=== PATIENT | male | born 1955 | race Caucasian/White ===

== ENCOUNTER 2018-03-13 09:36 | Inpatient (IN) | payer OTHER ==
[2018-03-13] MEDS ORDERED: ONDANSETRON 4 MG/2 ML VIAL IVP PRN (15:04)
[2018-03-13] MEDS ORDERED: ONDANSETRON DISINTEGRATING 4 MG TAB PO PRN (15:04)
[2018-03-13] MEDS ORDERED: ALBUTEROL 60 PUFFS/8 GM MDI IH PRN (15:06)
[2018-03-13] MEDS ORDERED: D50W 25 GM/50 ML SYR IVP PRN (15:13)
[2018-03-13] MEDS ORDERED: NON-FORMULARY NEW DRUG (Insulin Pump, Patient Own 1 EA) MISC SCH (15:15)
[2018-03-13] MEDS ORDERED: INSULIN PUMP, PATIENT OWN 1 EA MISC SCH (15:15)
--- NOTE | 2018-03-13 15:40 | GHP ---
[f rep st] HISTORY AND PHYSICAL DATE OF ADMISSION: 03/13/2018 CHIEF COMPLAINT: Right foot infection. HISTORY OF PRESENT ILLNESS: This is a 62-year-old man who was sent in by Dr. Tran. He had a plantar plate repair last week by Dr. Tran. There was an external pin left in place. He saw Dr. Tran last who removed the pin. On Saturday, he began to have fevers to 102, noticed increased pain, swelling, and redness in his right foot. He saw Dr. Tran on Saturday who started him on Bactrim at that point. He is unsure if the swelling is any better, though it may be slightly better from 3 days ago when he started antibiotics. He has not had any significant fevers over the past few days. He has diabetes. His last A1c is 6.8. He tells me that is quite well controlled. PAST MEDICAL/SURGICAL HISTORY: 1. Type 2 diabetes. Has an insulin pump. 2. Hyperlipidemia. 3. Asthma. 4. Bilateral ankle repair. 5. Knee surgery. 6. Appendectomy about a year ago. MEDICATIONS: Please see medication reconciliation. ALLERGIES: augmentin. FAMILY HISTORY: Has multiple members of his family with diabetes. SOCIAL HISTORY: He very rarely drinks. He has not smoked for decades. REVIEW OF SYSTEMS: 10-point review of systems is conducted and is negative except per HPI. PHYSICAL EXAM: VITAL SIGNS: Blood pressure 128/80, heart rate 83, respiration rate 20, saturating 91% on room air, temperature is 36.9. GENERAL: The patient is a pleasant man who is resting comfortably. No acute distress. HEENT : Normocephalic, atraumatic. CARDIOVASCULAR: Regular rate and rhythm. No murmurs, rubs, or gallops. PULMONARY: Lungs clear to auscultation bilaterally. ABDOMEN: Soft, nontender, nondistended. He has an insulin pump. SKIN: No rash. GENITOURINARY: No Vela. NEUROLOGIC: Alert and oriented x3. He is moving all extremities. PSYCHIATRIC: Normal mood and affect. EXTREMITIES: His right 3rd toe to be significantly edematous and erythematous. There is a line of erythema extending approximately senior living through the dorsum of his foot. I have traced this. He has no streaking and no inguinal lymphadenopathy. I do not appreciate any significant fluctuance. There is a small hole where the previous surgical pin had been placed which is scabbed over. LABS: I have ordered a basic metabolic panel, CBC, as well as blood cultures. DATA: There is currently no data to review. IMPRESSION AND PLAN: A 62-year-old diabetic man who has a postoperative foot infection. 1. Postoperative foot infection: He had been on outpatient Bactrim, still has evidence of significant infection. I have ordered blood cultures, basic set of labs, as well as an x-ray. If there is any concern for osteomyelitis, will proceed with an MRI. I have placed a call to Dr. Tran, his cloth dyer; have yet to hear back. Will start him on vancomycin as he has an allergy to augmentin. I placed an Infectious Disease consult. Will reassess his foot later today to make sure that the erythema is not worsening. This is a high- risk diagnosis. 2. Diabetes mellitus type 2: Will allow him to use his own insulin pump. Will continue his oral medicines save metformin. 3. Hyperlipidemia: Statin. 4. Asthma: Inhalers. 5. Venous thromboembolism risk: This is moderate. I will place him on Lovenox. 6. Code status: He would like to be full code. /[id number]/MODL MTDD
[2018-03-13] MEDS ORDERED: VANCOMYCIN 1.5 GM in NS 250 ML IV ONE (16:00)
[2018-03-13 16:25] LABS: PLATELET COUNT 242 10^3/uL (150-400)
[2018-03-13] MEDS: OXYCODONE/APAP 5/325 TAB PO PRN ×2 (16:41→20:48)
[2018-03-13] MEDS: ATORVASTATIN CALCIUM 20 MG TAB PO SCH (20:26)
[2018-03-13] MEDS: ASPIRIN 81 MG CHEWABLE TAB PO SCH (20:26)
[2018-03-13] MEDS: NIACIN ER 1000 MG TAB.ER PO SCH (20:26)
[2018-03-13] MEDS: LEVOTHYROXINE 125 MCG TAB PO SCH (20:27)
[2018-03-13] MEDS: LISINOPRIL 10 MG TAB PO SCH (20:27)
[2018-03-13] MEDS ORDERED: LANSOPRAZOLE SUSP 3 MG/ML UDSYR (Peds) PO SCH (21:00)
[2018-03-13] MEDS: BUDESONIDE/FORMOTEROL 160/4.5 60 PUFFS/MDI IH SCH (21:35)
[2018-03-14] MEDS ORDERED: VANCOMYCIN 1.25 GM in NS 250 ML IV SCH (04:30)
[2018-03-14] MEDS: ACETAMINOPHEN 325 MG TAB PO PRN ×4 (04:36→20:57)
[2018-03-14 06:02] LABS: PLATELET COUNT 233 10^3/uL (150-400)
--- NOTE | 2018-03-14 07:27 | SOAPPROG ---
DEMI Progress Note Assessment/Plan: Assessment: 1. cellulitis right foot 2. s/p plantar plate repair and 2nd metatarsal osteotomy - DOS 02/03/18 3. DM2 Plan: 1. Continue IV abx. Await ID input 2. Possible I&D should symptoms not resolve with further IV abx 03/14/18 07:24 Subjective: Pt feeling much better after 2 rounds of IV vanc. No issues with f/c/n/v. RElates pain 0/10. Objective: Vital Signs Temp Pulse Resp BP Pulse Ox 36.4 C 76 18 97/56 L 92 03/14/18 04:00 03/14/18 04:00 03/14/18 04:00 03/14/18 04:00 03/14/18 04:00 Laboratory Results 03/14/18 04:55 03/14/18 04:55 Continued but receding erythema and edema to right foot and 2nd toe;no active drainage - Time Spent With Patient Time Spent With Patient: 40 min - Pending Discharge Pending Discharge Within 24 Hours: No Pending Discharge Within 48 Hours: Yes Pending Discharge Date: 03/16/18 Pending Discharge Time: 11:00 Physical Exam - Physical Exam General Appearance: WD/WN ICD10 Worksheet Patient Problems: Problems Problem Status Onset Cellulitis of foot, right Acute - ICD10 Problem Qualifiers (1) Cellulitis of foot, right
[2018-03-14] MEDS: BUDESONIDE/FORMOTEROL 160/4.5 60 PUFFS/MDI IH SCH ×2 (08:06→20:58)
[2018-03-14] MEDS: Empagliflozin [Jardiance] 25 MG PO SCH (08:23)
[2018-03-14] MEDS: PRESERVISION AREDS2 FORMULA EYE VIT 1 EACH PO SCH (08:23)
[2018-03-14] MEDS: ENOXAPARIN 40 MG/0.4 ML SYR SC SCH (08:23)
[2018-03-14] MEDS: OMEGA-3 FATTY ACIDS 1,000 MG CAP PO SCH (08:23)
[2018-03-14] MEDS: FERROUS SULFATE 325 MG TAB PO SCH (08:23)
[2018-03-14] MEDS: buPROPion XL 150 MG TAB PO SCH (08:23)
[2018-03-14] MEDS ORDERED: NON-FORMULARY NEW DRUG (Empagliflozin [Jardiance] 25 MG) PO SCH (09:00)
--- NOTE | 2018-03-14 10:49 | HOSPPROG ---
Hospitalist Progress Note Assessment/Plan: 62y male with c/o foot infection. First encounter, chart reviewed. # cellulitis right foot -better today -cont IV abx -D/W Dr Louie -hold off on MRI # s/p plantar plate repair and 2nd metatarsal osteotomy - -DOS 02/03/18 # DM2 -insulin pump -good control #Dispo -unclear -cont IV abx -follow cultures Subjective: Feeling well. Less pain today. Objective: Vital Signs Temp Pulse Resp BP Pulse Ox 36.8 C 68 16 125/68 H 91 L 03/14/18 07:50 03/14/18 07:50 03/14/18 07:50 03/14/18 07:50 03/14/18 07:50 Laboratory Results 03/14/18 04:55 03/14/18 04:55 - Physical Exam Constitutional: no apparent distress, appears nourished, not in pain Eyes: PERRL, anicteric sclera, EOMI Ears, Nose, Mouth, Throat: moist mucous membranes, hearing normal, ears appear normal Cardiovascular: No JVD, No tachycardia, No edema Respiratory: no respiratory distress, no rales or rhonchi, clear to auscultation Gastrointestinal: normoactive bowel sounds, No tenderness, No ascites Skin: warm, no rashes or abrasions, erythema Musculoskeletal: full muscle strength, joint tenderness, pain with ROM Neurologic: AAOx3 Psychiatric: interacting appropriately, not anxious, not encephalopathic, thought process linear ICD10 Worksheet Patient Problems: Problems Problem Status Onset Cellulitis of foot, right Acute
--- NOTE | 2018-03-14 15:45 | ASMTCMCOM ---
CM Note CM Note Notes: Spoke w/RN, pt lives at home w/, anticipate he will dc home w/support of when medically stable. CM available for any changes. DC Plan: Independent Date Signed: 03/14/2018 03:44 PM Electronically Signed By:Yaquelin Ochoa RN
--- NOTE | 2018-03-14 16:22 | PDMN ---
Medical Necessity Medical necessity: Pt meets INPT criteria per MD and [facility] M-70 Cellulitis ( cellulitis s/p plantar plate repair and 2nd MT osteotomy, DM, requiring ongoing IVABx and monitoring).
--- NOTE | 2018-03-14 16:51 | SOAPPROG ---
DEMI Progress Note Assessment/Plan: Assessment: 1. cellulitis right foot 2. s/p plantar plate repair and 2nd metatarsal osteotomy - DOS 02/03/18 3. DM2 Plan: 1. Continue IV abx. Await ID input 2. Possible I&D should symptoms not resolve with further IV abx 03/14/18 07:24 03/14/18 16:49 1. Lanced pustule dorsal base of 2nd toe with very little expressed. No cx taken. 2. okay to d/c home tomorrow pending ID change of abx and discharge instructions. 3. Patient will f/u in outpatient clinic for further postop care at [facility]. [phone] Subjective: Continues to do well. No pain. Objective: Vital Signs Temp Pulse Resp BP Pulse Ox 36.9 C 69 16 107/75 90 L 03/14/18 15:39 03/14/18 15:39 03/14/18 15:39 03/14/18 15:39 03/14/18 15:39 Laboratory Results 03/14/18 04:55 03/14/18 04:55 decreasing erythema and edema right dorsal forefoot - Pending Discharge Pending Discharge Within 24 Hours: Yes Pending Discharge Date: 03/15/18 Pending Discharge Time: 11:00 ICD10 Worksheet Patient Problems: Problems Problem Status Onset Cellulitis of foot, right Acute - ICD10 Problem Qualifiers (1) Cellulitis of foot, right
--- NOTE | 2018-03-14 19:32 | GCON ---
[f rep st] CONSULTATION INFECTIOUS DISEASE CONSULTATION DATE OF CONSULTATION: 03/14/2018 PHYSICIAN REQUESTING CONSULTATION: Jarrod Tran DPM. REASON FOR CONSULTATION: Postop infection, right foot. HISTORY OF PRESENT ILLNESS: A 62-year-old man with a past medical history of diabetes who was sent t o the emergency room by Dr. Tran for an infection in his right foot, not responding to antibiot ic therapy. Patient's current problems date back to 02/03/2018, when he underwent a plantar plate re pair and 2nd metatarsal osteotomy, 02/03/2018. The patient was doing well postoperatively and on March 06, 2018, the pin was removed. That night, the patient developed a fever and increasing pain associa humberto with his 2nd toe. The patient was evaluated by Dr. Tran 03/10/2018, and was started on Marcus trim Double Strength 1 twice daily. The patient was re-evaluated by Dr. Tran on the day of adm ission, 03/13/2018, and was felt not to be responding appropriately to antibiotics and was transferre d to the emergency room. Patient was admitted to the hospital and started on IV vancomycin. Blood c ultures were obtained and patient was started on vancomycin 1.25 g IV q.12, given initial dose of 1.5 . The patient reports that he did not have elevated glucoses associated with the infection. He also denied malaise. Since receiving IV antibiotics for approximately 12 hours, patient reports a 70% to 80% improvement including pain, swelling, and redness. He denies any drainage associated with his w ound. PAST MEDICAL HISTORY: Type 2 diabetes on an insulin pump, elevated cholesterol, pneumonia 2 years ag o where he reports receiving levofloxacin. PAST SURGICAL HISTORY: Includes right medial meniscus repair, bilateral ankle repairs, appendectomy. ALLERGIES: Patient gets a rash to Augmentin, which occurred approximately 10 or 15 years ago. He de scribes a macular papular eruption as opposed to urticaria. SOCIAL HISTORY: Patient is . He has a remote history of pipe use in 1983. Occasional alcoho l. He is originally from [place]. FAMILY HISTORY: Positive for diabetes. REVIEW OF SYSTEMS: A complete 10-point review of systems was performed and is negative except as men tioned in the HPI. PHYSICAL EXAM: VITAL SIGNS: Blood pressure 125/68, 92 kg, T 36.8. He has been afebrile throughout his hospitalization. Heart rate 68, respiratory rate 16, saturation 92% on room air. GENERAL: This is a very pleasant male who is conversational, in no acute distress. HEENT: Good dentition. Moist mucous membranes. No oral ulcerations or exudates. CARDIOVASCULAR: Regular rate and rhythm. No m urmurs. CHEST: Clear to auscultation bilaterally. He was breathing easily. ABDOMEN: Soft, nonten cesar. Bowel sounds are present. He had an insulin pump in place. SKIN: No rashes. : No Vela. NEUROLOGIC: He is alert, oriented x4. Moving all 4 extremities equally. EXTREMITIES: He had 2+ d orsalis pedis pulses bilaterally and normal capillary refill. On his right foot, 2nd digit, he had e rythema and swelling with an obviously healed surgical incision. The erythema tracked in a small are a on the dorsum of his foot. Overlying the anterior surface of the 2nd digit, a pustule/bulla was pr esent where the skin felt thickened and tinfoil-like. Minimal tenderness. He had a prior bulla on t he underside of his foot. The foot overall was generally more swollen than the left. He had no lymp hangitis. LABORATORY: White count 8.8, yesterday 9.9; hematocrit 42; platelets 233, 54% neutrophils, 32% lymph ocytes. Creatinine was 1.0. Remote culture 07/15/2015, showed MSSA. ASSESSMENT/PLAN: This is a 62-year-old male who underwent a plantar plate repair of the 2nd metatars al with 2nd metatarsal osteotomy 02/03/2018, who postoperatively developed cellulitis about a month l ater. The patient had minimal response to Bactrim and clinically, rapid onset and clinical appearanc e without significant purulence is most consistent with disease mediated by Streptococcus. Also, pat ient with minimal antibiotic exposure, last received antibiotics almost 2 years ago. Finally, has pa st cultures that demonstrate methicillin sensitive Staphylococcus aureus. Therefore, 1. Would discontinue vancomycin. 2. Would start patient on cefazolin. Discussed risks of cross-reactivity with penicillins and signs to monitor for. Also discussed shorter half-life and treatment that we can provide here in the hosp ital, which is an ideal location to assure that there is not a cross-reaction with past reaction to A ugmentin. 3. Due to therapy with vancomycin, treatment with lisinopril and underlying diabetes. Would recheck creatinine tomorrow to assure it remains normal. 4. Tentatively plan for discharge tomorrow, mid afternoon, possibly on Keflex if continues to respon d to antibiotic therapy overnight. 5. Recommended to Dr. Tran to unroof bulla/pustule and culture to see if that can provide salas tional guidance to us. Thank you for this consultation. Care coordinated with Dr. Tran. /[id number]/MODL
[2018-03-14] MEDS: ATORVASTATIN CALCIUM 20 MG TAB PO SCH (20:57)
[2018-03-14] MEDS: NIACIN ER 1000 MG TAB.ER PO SCH (20:57)
[2018-03-14] MEDS: ASPIRIN 81 MG CHEWABLE TAB PO SCH (20:57)
[2018-03-14] MEDS: LISINOPRIL 10 MG TAB PO SCH (20:58)
[2018-03-14] MEDS ORDERED: LANSOPRAZOLE SUSP 30MG/10ML UDSYR (Adult) PO SCH (21:00)
[2018-03-14] MEDS: LEVOTHYROXINE 125 MCG TAB PO SCH (21:17)
[2018-03-15] MEDS ORDERED: IBUPROFEN 200 MG TAB PO ONE (03:43)
[2018-03-15] MEDS ORDERED: LEVOTHYROXINE 125 MCG TAB PO SCH (06:00)
[2018-03-15 07:30] VITALS: BP 100/67
[2018-03-15] MEDS: OMEGA-3 FATTY ACIDS 1,000 MG CAP PO SCH (07:56)
[2018-03-15] MEDS: buPROPion XL 150 MG TAB PO SCH (07:56)
[2018-03-15] MEDS: PRESERVISION AREDS2 FORMULA EYE VIT 1 EACH PO SCH (07:57)
[2018-03-15] MEDS: ENOXAPARIN 40 MG/0.4 ML SYR SC SCH (07:57)
[2018-03-15] MEDS: Empagliflozin [Jardiance] 25 MG PO SCH (07:57)
[2018-03-15] MEDS: FERROUS SULFATE 325 MG TAB PO SCH (07:58)
--- NOTE | 2018-03-15 11:29 | PCMIDPN ---
Assessment/Plan: Assessment/Plan: * Right lower extremity cellulitis status post foot surgery and pin removal: Clinically improved with cefazolin. Still with residual cellulitis which would benefit from additional IV antibiotics. Will transition to ceftriaxone which will be administered today and on through Saturday. Anticipate follow-up in our office on Saturday with hopes can transition to oral antibiotic therapy to complete treatment at that point in time. Does have indwelling screws remaining which will need to be kept in mind if patient fails to resolve with antibiotic therapy. 03/15/18 11:27 Subjective: Patient feels significantly improved with pruritis over 2nd toe. Notes that swelling and redness have decreased. Objective: Vital Signs Temp Pulse Resp BP Pulse Ox 36.9 C 55 L 16 100/67 91 L 03/15/18 07:30 03/15/18 07:30 03/15/18 07:30 03/15/18 07:30 03/15/18 07:30 Laboratory Results 03/14/18 04:55 03/15/18 04:13 03/14/18 03/15/18 03/16/18 05:59 05:59 05:59 Intake Total 550 Balance 550 Cefazolin # 1 Blood cultures x2 no growth - Physical Exam General Appearance: alert, no apparent distress EENT: No scleral icterus, No thrush Respiratory: lungs clear, No respiratory distress Cardiac/Chest: regular rate, rhythm Extremities: inflammation (Right foot with erythema over dorsal aspect extending to 2nd toe; extent of erythema has receded from previously demarcated line; overlying scab and early desquamation of skin present; no palpable fluctuance or expressible purulent) Lymphatic: other (No lymphangitis right lower extremity) ICD10 Worksheet Patient Problems: Problems Problem Status Onset Cellulitis of foot, right Acute
[2018-03-15] MEDS ORDERED: cefTRIAXone 2 GM in STERILE WATER INJ 20 ML IV SCH (11:30)
[2018-03-15] MEDS: BUDESONIDE/FORMOTEROL 160/4.5 60 PUFFS/MDI IH SCH (12:01)
--- NOTE | 2018-03-15 12:05 | GDS ---
[f rep st] DISCHARGE SUMMARY FINAL DIAGNOSIS: 1. Right foot cellulitis status post surgery. 2. Recent plantar repair and 2nd metatarsal osteotomy. 3. Diabetes mellitus type 2 with an insulin pump. HOSPITAL COURSE: 1. 62-year-old man admitted with lower extremity cellulitis: This occurred after a foot surgery don e by Dr. Tran. Initially treated with vancomycin then transitioned to Ancef with good results. He still requires a few more days of intravenous antibiotic therapy. He will receive outpatient Ro cephin infusions and will follow up with Infectious Disease on Saturday. He has been given all this i nformation. He does still have [address] postoperatively. 2. Diabetes mellitus type 2: He uses an insulin pump. Hemoglobin A1c is 7.2. His sugars have been well controlled while he is here. FOLLOWUP: Followup with either Dr. Louie or Dr. Soto 3 days after discharge. BILLING: I spent more than 30 minutes on the day of discharge coordinating care. /[id number]/MODL
--- NOTE | 2018-03-15 16:26 | ASMTCMCOM ---
CM Note CM Note Notes: Pt will finish up abx treatment at the outpt infusion center on [address]. UC scheduled pt for his appointments, no other needs identified. DC Plan: Independent + Outpt infusion Date Signed: 03/15/2018 12:23 PM Electronically Signed By:Yaquelin Ochoa RN
== END 2018-03-15 12:46 | disposition home or self-care (01) | DRG 603 ==
LOC: F3E 14:08 → INTOOBSV 14:08 → OBSVTOIN 14:08
PROVIDERS: ADMIT Family Medicine; ATTEND Student in an Organized Health Care Education/Training Program
DX: L03.115 Cellulitis of right lower limb (principal); T81.4XXA Infection following a procedure, initial encounter; B95.61 Methicillin susceptible Staphylococcus aureus infection as the cause of diseases classified elsewhere; M20.11 Hallux valgus (acquired), right foot; E11.9 Type 2 diabetes mellitus without complications; E78.5 Hyperlipidemia, unspecified; J45.909 Unspecified asthma, uncomplicated; Z79.51 Long term (current) use of inhaled steroids; Z79.4 Long term (current) use of insulin
CPT/HCPCS: G0378; J0690; J0696; J1650; J3370

== ENCOUNTER 2018-06-06 05:54 | Day surgery (SDC) | payer OTHER ==
[2018-06-06] MEDS ORDERED: LR 1,000 ML IV ONE (06:05)
[2018-06-06] MEDS ORDERED: POLYMYXIN B SULFATE 500,000 UNIT/10 ML SYR IRR ONE (06:50)
[2018-06-06] MEDS ORDERED: BACITRACIN 50,000 UNITS/10 ML SYR IRR ONE (06:50)
[2018-06-06] MEDS ORDERED: BUPIVACAINE 0.5% 30 ML SDV ONE (06:51)
--- NOTE | 2018-06-06 06:52 | PDHPUP ---
History & Physical Update H&P update statement: This history and physical update is based on an assessment of the patient which was completed after admission or registration (within 24 hours), but prior to the surgery/procedure. H&P update: H&P reviewed & patient examined
[2018-06-06] MEDS ORDERED: MIDAZOLAM 2 MG/2 ML VIAL IVP ONE (07:14)
--- NOTE | 2018-06-06 07:14 | PDANEPAE ---
ANE Past Medical History - Cardiovascular History Hx Hypertension: No Hx Arrhythmias: No Hx Chest Pain: No Hx Coronary Artery / Peripheral Vascular Disease: No Hx CHF / Valvular Disease: No Hx Palpitations: No - Pulmonary History Hx COPD: No Hx Asthma/Reactive Airway Disease: Yes Hx Recent Upper Respiratory Infection: No Hx Oxygen in Use at Home: No Hx Sleep Apnea: No Sleep Apnea Screening Result - Last Documented: Negative Pulmonary History Comment: exercise induced asthma - Neurologic History Hx Cerebrovascular Accident: No Hx Seizures: No Hx Dementia: No - Endocrine History Hx Diabetes: Yes Endocrine History Comment: type 2 uses insulin pump - Renal History Hx Renal Disorders: No - Liver History Hx Hepatic Disorders: No - Neurological & Psychiatric Hx Hx Neurological and Psychiatric Disorders: Yes Neurological / Psychiatric History Comment: tremor. depression - Cancer History Hx Cancer: No - Congenital Disorder History Hx Congenital Disorders: Yes Congenital History Comment: diabetes - GI History Hx Gastrointestinal Disorders: Yes Gastrointestinal History Comment: gerd - Other Health History Other Health History: high level hearing loss both ears - Chronic Pain History Chronic Pain: No - Surgical History Prior Surgeries: 2008 foot surgery. planter plate repair february 03. bilat ligament repairs in ankles ANE Review of Systems Review of Systems: - Exercise capacity METS (RN): 4 METS ANE Patient History - Allergies Allergies/Adverse Reactions: amoxicillin [From Augmentin] Allergy (Verified 06/03/18 17:22) Rash clavulanic acid [From Augmentin] Allergy (Verified 06/03/18 17:22) Rash - Home Medications Home Medications: Albuterol [Proventil Inhaler HFA (*)] 03/13/18 [Last Taken 3 Months Ago ~] Aspirin [Aspirin 81mg (*)] 03/13/18 [Last Taken 06/04/18] Atorvastatin Calcium [Lipitor 20 mg (*)] 03/13/18 [Last Taken 06/04/18] Budesonide/Formoterol 160/4.5 [Symbicort 160-4.5 Mcg Inh (*)] 03/13/18 [Last Taken 06/05/18] C/E/Zn/Cu/OM3/DHA/EPA/LUT/ZEAX [Preservision Areds 2 Softgel] 03/13/18 [Last Taken 06/04/18] Empagliflozin [Jardiance] 03/13/18 [Last Taken 06/04/18] Ferrous Sulfate [Ferrous Sulf 325 MG (*)] 03/13/18 [Last Taken 06/04/18] Herbals/Supplements -Info Only 03/13/18 [Last Taken 06/04/18] Insulin Pump, Patient Own 03/13/18 [Last Taken 06/05/18] Lansoprazole [Prevacid] 03/13/18 [Last Taken 06/04/18] Levothyroxine [Synthroid 125 mcg (*)] 03/13/18 [Last Taken 06/05/18] Lisinopril [Zestril 10 mg (*)] 03/13/18 [Last Taken 06/05/18] Multivitamins [Multivitamin (*)] 03/13/18 [Last Taken 06/04/18] Niacin ER [Niaspan 1000 mg (*)] 03/13/18 [Last Taken 06/04/18] Independence-3 Fatty Acids [Fish Oil 1000 mg (*)] 03/13/18 [Last Taken 06/04/18] buPROPion XL [Wellbutrin 150mg XL] 03/13/18 [Last Taken 06/05/18] metFORMIN HCL [Glucophage 1000 mg] 03/13/18 [Last Taken 06/04/18] - NPO status NPO Since - Liquids (Date): 06/05/18 NPO Since - Liquids (Time): 21:00 NPO Since - Solids (Date): 06/05/18 NPO Since - Solids (Time): 21:00 - Smoking Hx Smoking Status: Former smoker - Family Anes Hx Family Hx Anesthesia Complications: none ANE Labs/Vital Signs - Vital Signs Blood Pressure: 113/77 Heart Rate: 63 Respiratory Rate: 14 O2 Sat (%): 91 Height: 172.72 cm Weight: 97.069 kg ANE Physical Exam - Airway Neck exam: FROM Mallampati Score: Class 2 Mouth exam: normal dental/mouth exam - Pulmonary Pulmonary: no respiratory distress - Cardiovascular Cardiovascular: regular rate and rhythym - ASA Status ASA Status: III ANE Anesthesia Plan Anesthesia Plan: GA w LMA
[2018-06-06] MEDS ORDERED: MIDAZOLAM 2 MG/2 ML VIAL ONE (07:17)
[2018-06-06] MEDS ORDERED: PROPOFOL 200 MG/20 ML VIAL ONE ×2 (07:21→07:36)
[2018-06-06] MEDS ORDERED: LIDOCAINE 2% 2 ML INJ ONE (07:21)
[2018-06-06] MEDS ORDERED: fentaNYL 100 MCG/2 ML INJ ONE (07:21)
[2018-06-06] MEDS ORDERED: ONDANSETRON 4 MG/2 ML VIAL ONE (07:34)
[2018-06-06] MEDS ORDERED: DEXAMETHASONE 4 MG/ML VIAL ONE (07:34)
[2018-06-06] MEDS ORDERED: NALOXONE HCL 0.4 MG/ML INJ IVP PRN (08:42)
[2018-06-06] MEDS ORDERED: PROMETHAZINE HCL 25 MG/ML INJ IVP PRN (08:42)
[2018-06-06] MEDS ORDERED: ONDANSETRON DISINTEGRATING 4 MG TAB PO PRN (08:42)
[2018-06-06] MEDS ORDERED: ONDANSETRON 4 MG/2 ML VIAL IVP PRN (08:42)
[2018-06-06] MEDS ORDERED: fentaNYL 100 MCG/2 ML INJ IVP PRN (08:42)
[2018-06-06] MEDS ORDERED: HYDROCODONE/APAP 5/325 TAB PO PRN (08:42)
--- NOTE | 2018-06-06 08:42 | POSTOPPROG ---
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
--- NOTE | 2018-06-06 08:44 | POSTANESTH ---
Post Anesthetic Evaluation Cardiovascular Status: Normal, Stable Respiratory Status: Normal, Stable Level of Consciousness/Mental Status: Mildly Sleepy, Arousable Pain Control: Adequate, Prn Tx Ordered Nausea/Vomiting Control: Adequate, Prn Tx Ordered Complications Possibly Related to Anesthesia: None Noted
[2018-06-06 10:11] VITALS: BP 120/78
--- NOTE | 2018-06-07 07:32 | GOP ---
[f rep st] OPERATIVE REPORT DATE OF OPERATION: 06/06/2018 SURGEON: Jarrod Tran DPM PATROL DEPUTY SHERIFF: None. ANESTHESIA: General. PREOPERATIVE DIAGNOSIS: 1. Osteomyelitis 2nd metatarsal. 2. Nonunion, right foot. 3. Infected and loose hardware. 4. Abscess 2nd metatarsophalangeal joint. POSTOPERATIVE DIAGNOSIS: 1. Osteomyelitis 2nd metatarsal. 2. Nonunion, right foot. 3. Infected and loose hardware. 4. Abscess 2nd metatarsophalangeal joint. PROCEDURE PERFORMED: 1. Incision and drainage of abscess, right foot. 2. Partial 2nd ray amputation. 3. Hardware removal. FINDINGS: Upon incision into the capsule of the 2nd metatarsophalangeal joint, a large abscess was e ncountered. The bone itself was noted to be nonviable at the head of the 2nd metatarsal, right foot. SPECIMENS: 1. Culture swabs. 2. Second metatarsal head sent for permanent pathologic specimen. 1. Proximal margin of the 2nd metatarsal, right foot. 3. ESTIMATED BLOOD LOSS: Scant. INDICATIONS: Mr. Jara is a gentleman who has a past medical history of diabetes type 2, insulin d ependent, who underwent a right forefoot reconstruction some 5 months ago. The patient has continued to have persistent pain and swelling within the area. Recent CT scan showed bony destruction and no nunion within the area of question. After a long consideration of the options of removing the hardwa re and taking bone biopsy samples, he and his decided to have the 2nd toe and any nonviable bone removed completely to expedite the process to a return toward normality. The patient understands th e risks, benefits, and alternatives to the procedures presented and wishes to proceed. DESCRIPTION OF PROCEDURE: Under mild sedation the patient was brought into the operative room, place d on the operating table in the supine position. Following induction of general anesthesia, a region al forefoot block of 30 cc of 0.5% Marcaine plain was completed. The foot was then scrubbed, prepped , and draped in the usual aseptic manner. A sterile pneumatic tourniquet was placed about the patien t's well-padded supramalleolar area of the right lower extremity. An Esmarch bandage was utilized to exsanguinate the patient's right foot and the tourniquet was inflated to 250 mmHg. Attention was then directed to the area overlying the 2nd metatarsophalangeal joint of the right foot . A racquet-type incision was drawn with the racquet surrounding the base of the 2nd toe and the arm of the racquet extending proximally in line with the longitudinal axis of the 2nd metatarsal. The i ncision was made directly to bone. Upon the disarticulation of the 2nd toe at the 2nd metatarsal pha langeal joint and incising of the capsule of the 2nd metatarsophalangeal joint, a large amount of pur ulence was found. Culture swabs were immediately taken. The toe was disarticulated and passed from the operative field. At this time, the periosteal and capsular tissues were reflected medially and l aterally thus exposing the head of the 2nd metatarsal. One of the 2 screws within the 2nd metatarsal head was "floating." This was removed and passed from the operative field. The 2nd screw was well imbedded in the 2nd metatarsal and was removed without incident. The 2nd metatarsal head was then re moved with a combination of rongeur as well as a sagittal saw. This was noted to be without much int egrity and soft. This was sent for pathologic specimen to assess for acute or chronic osteomyelitis. At this time, a proximal margin was taken from the 2nd metatarsal. The distal portion was marked w ith a marking pen and sent again for pathologic specimen. The residual 2nd metatarsal was hard and g listening white, but did appear to be viable. The wound was flushed with copious amounts of sterile normal saline. Any nonviable soft tissues were then excised and passed from the operative field. Th e wound was closed in layers with 2-0 Vicryl closing the deep tissues, 3-0 Monocryl closing the subcu taneous tissues and then interrupted horizontal mattress-type sutures closing the skin. The wound wa s dressed with Xeroform and a sterile compressive dressing consisting of 4x4s and Gopal. A light Johnny bandage wrap was applied as well. The tourniquet was dropped and a prompt hyperemic response was no humberto to all residual digits of the right foot. The patient tolerated the procedure and anesthesia wel l. He was transferred to the recovery room with vital signs stable, vascular status intact to all re sidual digits of the right foot. Following a period of postoperative monitoring, the patient will be discharged home on the following written and oral postoperative instructions. 1. Keep dressing clean, dry, and intact. 2. Patient will be nonweightbearing for the initial 3-5 days following surgery. 3. All followup questions or concerns should be directed toward [facility] at [phone]. HEMOSTASIS: Pneumatic ankle tourniquet at 250 mmHg about the right ankle for 42 minutes. MATERIALS: None. INJECTABLES: 30 cc of 0.5% Marcaine plain. COMPLICATIONS: None. /[id number]/MODL
== END 2018-06-06 10:57 | disposition home or self-care (01) ==
LOC: FSGY 05:54
PROVIDERS: ATTEND Podiatrist Foot & Ankle Surgery
PROC: 0J9Q0ZZ Drainage of Right Foot Subcutaneous Tissue and Fascia, Open Approach (ICD-10-PCS; principal; 2018-06-06 07:15)
PROC: 0Y6M0ZB Detachment at Right Foot, Partial 2nd Ray, Open Approach (ICD-10-PCS; principal; 2018-06-06 07:15)
PROC: 0QPN04Z Removal of Internal Fixation Device from Right Metatarsal, Open Approach (ICD-10-PCS; principal; 2018-06-06 07:15)
DX: T84.69XA Infection and inflammatory reaction due to internal fixation device of other site, initial encounter (principal); M86.171 Other acute osteomyelitis, right ankle and foot; L02.611 Cutaneous abscess of right foot; E11.9 Type 2 diabetes mellitus without complications; Z87.891 Personal history of nicotine dependence
CPT/HCPCS: J1100; J2250; J2405; J2704; J3010